=== PATIENT | female | born 1970 | race Caucasian/White ===

== ENCOUNTER → 2019-05-20 | Outpatient (CLI) | payer BC ==
[~2019-05-20] MED LIST: FERR325 PO; HYDR1TAB94 PO; LISI5 PO; LORA1 PO; NAPR550 PO
== END | disposition home or self-care (01) ==
LOC: LAB SHORT 17:50 → LAB 17:50
DX: N30.00 Acute cystitis without hematuria (principal); R30.0 Dysuria
CPT/HCPCS: 87077; 87086; 87186

== ENCOUNTER → 2020-09-17 | Outpatient (CLI) | payer BC | END | disposition home or self-care (01) | LOC: PLD 16:50 → LAB SHORT 16:50 | DX: R30.0 Dysuria (principal) | CPT/HCPCS: 87077; 87086; 87186 ==

== ENCOUNTER → 2021-08-23 | Outpatient (CLI) | payer BC | LOC: LAB 11:40 → LAB SHORT 11:40 | DX: D48.5 Neoplasm of uncertain behavior of skin (principal); D03.72 Melanoma in situ of left lower limb, including hip; Z88.0 Allergy status to penicillin; Z88.2 Allergy status to sulfonamides; Z88.1 Allergy status to other antibiotic agents; Z88.8 Allergy status to other drugs, medicaments and biological substances | CPT/HCPCS: 88305 ==

== ENCOUNTER → 2021-09-11 | Outpatient (CLI) | payer BC | LOC: LAB 15:08 → LAB SHORT 15:08 | DX: D03.72 Melanoma in situ of left lower limb, including hip (principal); Z88.0 Allergy status to penicillin; Z88.2 Allergy status to sulfonamides; Z88.1 Allergy status to other antibiotic agents; Z88.8 Allergy status to other drugs, medicaments and biological substances | CPT/HCPCS: 88305 ==

== ENCOUNTER → 2022-02-26 | Outpatient (CLI) | payer BC | END | disposition home or self-care (01) | LOC: LAB 10:52 → LAB SHORT 10:52 → PLD 10:52 | DX: D22.72 Melanocytic nevi of left lower limb, including hip (principal) | CPT/HCPCS: 88305 ==

== ENCOUNTER 2022-03-16 12:08 | Day surgery (SDC) | payer BC ==
[~2022-03-16] VITALS: Ht 157.5 cm; Wt 54.1 kg
--- NOTE | 2022-03-16 15:26 | NUR ---
03/16/22 1526 MARAH HARRELL 2ML NACL USED FOR POLYP REMOVAL.
== END 2022-03-16 15:55 | disposition home or self-care (01) ==
LOC: ORSCSDS 12:08
PROVIDERS: Internal Medicine Gastroenterology
PROC: 0DBH8ZX Excision of Cecum, Via Natural or Artificial Opening Endoscopic, Diagnostic (ICD-10-PCS; principal; 2022-03-16 13:30)
PROC: 0DBP8ZX Excision of Rectum, Via Natural or Artificial Opening Endoscopic, Diagnostic (ICD-10-PCS; principal; 2022-03-16 13:30)
DX: Z12.11 Encounter for screening for malignant neoplasm of colon (principal); D12.0 Benign neoplasm of cecum; D12.8 Benign neoplasm of rectum; Z79.899 Other long term (current) drug therapy
CPT/HCPCS: 88305; J2704; J7120

== ENCOUNTER 2022-03-18 10:12 | Inpatient (IN) | payer BC ==
[~2022-03-18] VITALS: Ht 157.5 cm; Wt 54.4 kg
[2022-03-18 11:34] LABS: Source, Urine Clean Catch
[2022-03-18 11:41] LABS: BASOPHILS ABSOLUTE AUTO 0.04 K/mm3 (0.00-0.23); BASOPHILS PERCENT AUTO 0 % (0-2); EOSINOPHILS ABSOLUTE AUTO 0.02 K/mm3 (0.00-0.68); EOSINOPHILS PERCENT AUTO 0 % (0-6); Hematocrit 29.4 % (33.0-51.0); Hemoglobin 9.6 g/dL (11.5-16.0); IMMATURE GRAN ABSOLUTE AUTO 0.05 K/mm3 (0.00-0.10); IMMATURE GRAN PERCENT AUTO 0 % (0-1); LYMPHOCYTES ABSOLUTE AUTO 1.58 K/mm3 (0.84-5.20); LYMPHOCYTES PERCENT AUTO 13 % (21-46); MONOCYTES ABSOLUTE AUTO 0.47 K/mm3 (0.16-1.47); MONOCYTES PERCENT AUTO 4 % (4-13); Mean Corpuscular HGB 31.7 pg (26.0-34.0); Mean Corpuscular HGB Conc 32.7 g/dL (31.5-36.5); Mean Corpuscular Volume 97 fL (80-100); Mean Platelet Volume 11.4 fL (9.1-12.4); NEUTROPHILS ABSOLUTE AUTO 10.12 K/mm3 (1.96-9.15); NEUTROPHILS PERCENT AUTO 82 % (41-73); Platelet Count 257 K/mm3 (150-400); RDW Coefficient Variation 12.4 % (11.7-14.2); RDW Standard Deviation 43.9 fL (35.1-46.3); Red Blood Cell Count 3.03 M/mm3 (3.80-5.20); White Blood Cell Count 12.28 K/mm3 (4.00-11.30)
[2022-03-18 11:43] LABS: Appearance, Urine Clear (Clear); Bilirubin, Urine Neg (Neg); Blood, Urine Neg (Neg); Color, Urine Yellow (P-Yellow); Glucose Qualitative, Urine Neg (Neg); Ketones, Urine Neg (Neg); Leukocyte Esterase, Urine Neg (Neg); Nitrite, Urine Neg (Neg); Protein, Urine Neg (Neg); Urobilinogen, Urine NORM (Normal)
[2022-03-18 12:07] LABS: Albumin/Globulin Ratio 1.1 (0.8-1.8); Bilirubin, Total 0.2 mg/dL (0.1-1.0); Bun/Creatinine Ratio 48.1 (12.0-20.0); Calcium, Blood 7.9 mg/dL (8.5-10.1); Creatinine, Blood 0.67 mg/dL (0.40-1.00); Globulin, Blood 2.8 g/dL (2.2-4.0); Potassium, Blood 3.9 mmol/L (3.5-5.5); Total Protein, Blood 5.8 g/dL (6.4-8.2)
[2022-03-18] MEDS ORDERED: Prinivil10 MG PO (17:30)
[2022-03-18 19:11] LABS: Hematocrit 28.2 % (33.0-51.0)
--- NOTE | 2022-03-18 19:27 | NUR ---
SHIFT SUMMARY ARRIVED TO UNIT THIS AFTERNOON, HAS BEEN PLEASANT & COOPERATIVE. IVF INFUSING ORDERED. NO BLOOD FROM RECTUM SINCE ARRIVAL. TOLERATING CLEAR LQ's WELL.
[2022-03-19 05:07] LABS: Hematocrit 26.3 % (33.0-51.0); Hemoglobin 8.6 g/dL (11.5-16.0)
--- NOTE | 2022-03-19 05:20 | NUR ---
PT IS A&OX4, INDEPENDENT IN ROOM AND IS ABLE TO MAKE NEEDS KNOWN. HERE FOR BLOOD IN STOOL POST COLONOSCOPY. H&H IS 8.6 THIS AM, DOWN FROM 9.6 AT 2300. RECEIVING FLUIDS AT 100ML/HR, TOLERATING CLEAR LIQUIDS. SLEEPS 5+ HOURS THIS SHIFT. WILL CONTINUE TO MONITOR THIS PT AND GIVE HANDOFF REPORT TO ONCOMING RN.
[2022-03-19 05:53] LABS: Albumin, Blood 2.8 g/dL (3.4-5.0); Albumin/Globulin Ratio 1.2 (0.8-1.8); Bilirubin, Total 0.3 mg/dL (0.1-1.0); Bun/Creatinine Ratio 35.5 (12.0-20.0); Calcium, Blood 8.3 mg/dL (8.5-10.1); Creatinine, Blood 0.65 mg/dL (0.40-1.00); Globulin, Blood 2.4 g/dL (2.2-4.0); Total Protein, Blood 5.2 g/dL (6.4-8.2)
[2022-03-19 11:05] LABS: Hematocrit 27.3 % (33.0-51.0); Hemoglobin 8.9 g/dL (11.5-16.0)
--- NOTE | 2022-03-19 17:04 | NUR ---
SHIFT SUMMARY PT REMAINS IN THE HOSPITAL R/T GI BLEEDING. PT HAS HAD 1 BLACK TARRY STOOL, PT REPORTS THE NIKITA RED BLOOD IN THE STOOL HAS DECREASED SINCE SHE WAS ADMITTED, STOOL IS BECOMING MORE FORMED. PT IS TOLERATING CLEAR LIQUIDS. VSS. WILL MONITOR UNTIL REPORT TO IVA LUNA.
[2022-03-19 18:25] LABS: Hematocrit 27.6 % (33.0-51.0); Hemoglobin 8.9 g/dL (11.5-16.0)
[2022-03-19 19:06] LABS: Hematocrit 25.9 % (33.0-51.0); Hemoglobin 8.4 g/dL (11.5-16.0)
[2022-03-19] MEDS ORDERED: MELATONIN5 M1 PO (20:20)
[2022-03-19 23:34] LABS: Hemoglobin 7.9 g/dL (11.5-16.0)
--- NOTE | 2022-03-20 04:06 | NUR ---
SHIFT SUMMARY PT REPORTS NO BLOODY STOOLS T/O NIGHT. SHE DOES REPORT INTERMITTENT ABDOMINAL CRAMPING AND GAS PAINS. REPORTED X1 EPISODE OF FEELING DIZZY WHEN UP TO THE RESTROOM. SHE REPORTS THE DIZZYNESS HAS IMPROVED. HAS RESTED WELL T/O NIGHT. USES CALL LIGHT APPROPRIATELY.
[2022-03-20 05:57] LABS: BASOPHILS ABSOLUTE AUTO 0.03 K/mm3 (0.00-0.23); BASOPHILS PERCENT AUTO 1 % (0-2); EOSINOPHILS ABSOLUTE AUTO 0.07 K/mm3 (0.00-0.68); EOSINOPHILS PERCENT AUTO 1 % (0-6); Hematocrit 25.3 % (33.0-51.0); Hemoglobin 8.1 g/dL (11.5-16.0); IMMATURE GRAN ABSOLUTE AUTO 0.03 K/mm3 (0.00-0.10); IMMATURE GRAN PERCENT AUTO 1 % (0-1); LYMPHOCYTES ABSOLUTE AUTO 1.55 K/mm3 (0.84-5.20); LYMPHOCYTES PERCENT AUTO 28 % (21-46); MONOCYTES ABSOLUTE AUTO 0.33 K/mm3 (0.16-1.47); MONOCYTES PERCENT AUTO 6 % (4-13); Mean Corpuscular HGB 31.3 pg (26.0-34.0); Mean Corpuscular Volume 98 fL (80-100); Mean Platelet Volume 11.6 fL (9.1-12.4); NEUTROPHILS PERCENT AUTO 64 % (41-73); Platelet Count 219 K/mm3 (150-400); RDW Coefficient Variation 12.7 % (11.7-14.2); RDW Standard Deviation 45.1 fL (35.1-46.3); Red Blood Cell Count 2.59 M/mm3 (3.80-5.20); White Blood Cell Count 5.51 K/mm3 (4.00-11.30)
[2022-03-20 06:26] LABS: Albumin, Blood 2.9 g/dL (3.4-5.0); Albumin/Globulin Ratio 1.3 (0.8-1.8); Bilirubin, Total 0.3 mg/dL (0.1-1.0); Bun/Creatinine Ratio 24.6 (12.0-20.0); Calcium, Blood 8.3 mg/dL (8.5-10.1); Creatinine, Blood 0.73 mg/dL (0.40-1.00); Globulin, Blood 2.3 g/dL (2.2-4.0); Potassium, Blood 3.7 mmol/L (3.5-5.5); Total Protein, Blood 5.2 g/dL (6.4-8.2)
[2022-03-20 11:50] LABS: Hematocrit 24.9 % (33.0-51.0); Hemoglobin 8.2 g/dL (11.5-16.0)
--- NOTE | 2022-03-20 13:23 | NUR ---
PT COMPLAINING OF INCREASED ABD DISCOMFORT AFTER EATING HER LUNCH. SHE REPORTS INCREASED ABD CRAMPING. DR. DUNHAM NOTIFIED. PT DENIES NEED FOR PAIN MEDICATION AND DENIES NAUSEA. WILL CONTINUE TO MONITOR.
[2022-03-20 18:08] LABS: Hematocrit 25.3 % (33.0-51.0); Hemoglobin 8.2 g/dL (11.5-16.0)
--- NOTE | 2022-03-20 19:22 | NUR ---
SHIFT SUMMARY PT HAD SOME CRAMPING/INCREASED DISCOMFORT AFTER EATING HER LUNCH TODAY. CT SCAN REPEATED. DR. PALAFOX ROUNDED ON PT. PLAN FOR PT TO CONTINUE FULL LIQUID AND IF DISCOMFORT CONTINUES TOMORROW PLAN FOR BOWEL PREP AND POSSIBLE COLONOSCOPY. PT INDEPENDENT IN THE ROOM. REPORT GIVEN TO IVA LUNA.
[2022-03-20 22:57] LABS: Hematocrit 22.5 % (33.0-51.0); Hemoglobin 7.4 g/dL (11.5-16.0)
--- NOTE | 2022-03-21 04:16 | NUR ---
SHIFT SUMMARY PT RESTED WELL T/O SHIFT. DENIES ABDOMINAL CRAMPING, DIZZYNESS, AND BLOODY STOOLS. INDEP IN ROOM. VSS. NO ACUTE CHANGES. CALL LIGHT WITHIN REACH.
[2022-03-21 05:09] LABS: Hematocrit 22.6 % (33.0-51.0); Hemoglobin 7.5 g/dL (11.5-16.0)
--- NOTE | 2022-03-21 11:44 | NUR ---
SPOKE WITH DR. MORENO AT THIS TIME, PLAN IS TO START BOWEL PREP TONIGHT. WILL MAKE PT AWARE. DR. KIM NOTIFIED OF THIS PLAN WELL AT THIS TIME.
[2022-03-21 16:03] LABS: Hematocrit 22.3 % (33.0-51.0); Hemoglobin 7.3 g/dL (11.5-16.0)
--- NOTE | 2022-03-21 16:46 | NUR ---
SUMMARY: NO ACUTE CHANGE TODAY VSS, A/O. PT HAS HAD ONE SMALL BLOODY BM. PT HAS DENIED ANY ABD CRAMPING OR DIZZINESS, INDEPENDENT IN ROOM. PLAN IS TO BEGIN BOWEL PREP TONIGHT AND COMPLETE TOMORROW. PT CONTINUES ON CLEAR LIQ DIET. NO SAFETY CONCERNS, WILL PASS REPORT TO NOC RN
[2022-03-22 03:45] LABS: Hematocrit 22.4 % (33.0-51.0); Hemoglobin 7.3 g/dL (11.5-16.0)
--- NOTE | 2022-03-22 05:31 | NUR ---
PT IS A&OX4, INDEPENDENT IN ROOM AND WITH CARES AND IS ABLE TO MAKE NEEDS KNOWN. SUPREP GIVEN AT 2000 WITH GOOD RESULTS. DARK TARY COLORD STOOLS MOST OF THE NIGHT. H&H REMAINS AT 7.3 THIS AM, BP, PULSE AND TEMP REMAIN STABLE. PT DENIES PAIN, REPORTS MILD CRAMPING. RESTS BETWEEN CARES. SLEEPS 5+ HOURS THIS SHIFT. WILL CONTINUE TO MONITOR THIS PT AND GIVE REPORT TO ONCOMING STAFF.
--- NOTE | 2022-03-22 15:44 | NUR ---
Ambulatory in Day Surgery History, Chart, Medications and Allergies reviewed before start of procedure.Lungs clear T/O to Auscultation. Patient confirms NPO status and agrees with scheduled surgery. Patient states colon prep results clear. Pre-Op teaching done. Pt verbalizes understanding.
[2022-03-22 15:46] LABS: Hematocrit 24.7 % (33.0-51.0)
--- NOTE | 2022-03-22 16:43 | NUR ---
03/22/22 1643 Vanesa Diaz History, Chart, Medications and Allergies reviewed before start of procedure. Patient confirms NPO status and agrees with scheduled surgery. 3-LEAD EKG REVIEWED WITH PHYSICIAN PRIOR TO START OF PROCEDURE. MONITOR INTACT WITH CONTINUOUS PULSE OXIMETRY AND INTERMITTENT BP. PATIENT DETERMINED TO BE ASA APPROPRIATE FOR PROPOFOL SEDATION PRIOR TO START OF PROCEDURE BY VITAL SIGNS STABLE.02#L N/C T/O PROCEDURE
--- NOTE | 2022-03-22 18:26 | NUR ---
1510 TO DAY SURERY VIA JOSE
--- NOTE | 2022-03-22 18:26 | NUR ---
1620 REURNED TO ROOM, ALERT DENIES PAIN
--- NOTE | 2022-03-22 18:27 | NUR ---
PT EATING REGULAR DIET, DENIES NAUSEA OR ABD PAIN. AMBULATING IN ROOM. PT ANTICIPATES DISCHARGE TO HOME IN AM
--- NOTE | 2022-03-23 04:11 | NUR ---
PT IS A&OX4, INDEPENDENT WITH CARES AND IS ABLE TO MAKE NEEDS KNOWN. DAY 1 POST COLONOSCOPY FOR GI BLEED. PROTONIX gtt STARTED THIS SHIFT. 1500 H&H IS 8.0 UP FROM 7.3. DENIES N/V, CRAMPING AND PAIN. SLEEPS 7+ HOURS THIS SHIFT. WILL CONTINUE TO MONITOR THIS PT AND GIVE REPORT TO ONCOMING NURSE.
[2022-03-23 04:33] LABS: Hematocrit 20.7 % (33.0-51.0); Hemoglobin 6.8 g/dL (11.5-16.0)
[2022-03-23 15:11] LABS: Hematocrit 25.7 % (33.0-51.0); Hemoglobin 8.5 g/dL (11.5-16.0)
--- NOTE | 2022-03-23 18:28 | NUR ---
PT REPORTS FEELS SLIGHTLY LIGHTHEADED WHEN OOB, PT INSTRUCTED TO GET OOB SLOWLY TO AVOID DIZZINESS. DENIES NAUSEA OR ABD PAIN. PT REPORTS STOOL WAS GREEN/YELLOW
--- NOTE | 2022-03-24 03:27 | NUR ---
SHIFT SUMMARY NO ACUTE CHANGES TO REPORT OVERNIGHT, PT HAS RESTED MOST OF THE NIGHT. SHE DENIES PAIN OR NEEDS. PT DENIES BLOODY STOOLS. PLAN IS FOR POSSIBLE DISCHARGE TODAY IF HGB REMAINS STABLE WITH AM LABS. BED IN LOWEST POSITION, CALL LIGHT WITHIN REACH.
[2022-03-24 05:14] LABS: Hematocrit 26.5 % (33.0-51.0); Hemoglobin 8.6 g/dL (11.5-16.0)
--- NOTE | 2022-03-24 09:05 | NUR ---
DENIES ANY PAIN OR ANY DISCOMFORT, DENIES ANY BLOODY STOOLS, REPORTS TOLERATING REGULAR DIET WELL, DENIES ANY DIZZINESS, LIGHTHEADEDNESS OR NAUSEA, STATES FEELING "BETTER" TODAY.
[2022-03-24] MEDS ORDERED: PANT40 PO (12:18)
--- NOTE | 2022-03-24 12:35 | NUR ---
DC INSTTRUCTIONS GIVEN, VERBALIZED UNDERSTANDING, PT DC'D HOME W/ SON.
== END 2022-03-24 12:40 | disposition home or self-care (01) | DRG 920 ==
LOC: ER 10:12 → SURS 14:46
PROVIDERS: Family Medicine; Physician Assistant; Student in an Organized Health Care Education/Training Program; ADMIT Internal Medicine
PROC: 0DJD8ZZ Inspection of Lower Intestinal Tract, Via Natural or Artificial Opening Endoscopic (ICD-10-PCS; 2022-03-22)
PROC: 30233N1 Transfusion of Nonautologous Red Blood Cells into Peripheral Vein, Percutaneous Approach (ICD-10-PCS; principal; 2022-03-23)
DX: K91.840 Postprocedural hemorrhage of a digestive system organ or structure following a digestive system procedure (principal); K92.2 Gastrointestinal hemorrhage, unspecified; K92.1 Melena; I10 Essential (primary) hypertension; D72.829 Elevated white blood cell count, unspecified; M79.662 Pain in left lower leg; N83.201 Unspecified ovarian cyst, right side; N83.202 Unspecified ovarian cyst, left side; F12.90 Cannabis use, unspecified, uncomplicated; Z98.890 Other specified postprocedural states; Z86.010 Personal history of colon polyps; Z90.49 Acquired absence of other specified parts of digestive tract; Z90.710 Acquired absence of both cervix and uterus; Z79.811 Long term (current) use of aromatase inhibitors; Z88.0 Allergy status to penicillin; Z88.2 Allergy status to sulfonamides; Z88.1 Allergy status to other antibiotic agents
CPT/HCPCS: 36415; 36430; 74176; 80053; 81003; 83690; 85014; 85018; 85025; 86850; 86900; 86901; 86923; 93971; 99284-25; A9270; C9113; G0378; J2704; J7030; J7120; P9016

== ENCOUNTER → 2022-08-28 | Outpatient (CLI) | payer BC ==
[~2022-08-28] MED LIST changes: +MELATONIN5 M1 PO; +PANT40 PO; +Prinivil10 MG PO
== END ==
LOC: LAB SHORT 11:15 → PLD 11:15
DX: D48.5 Neoplasm of uncertain behavior of skin (principal)
CPT/HCPCS: 88305